=== PATIENT | female | born 1985 | race American Indian/Alaskan Native ===

== ENCOUNTER 2017-02-05 11:02 | Emergency (ER) | payer MEDICARE, MEDICAID ==
--- NOTE | 2017-02-05 21:50 | Emergency Department Report ---
HPI - General Chief Complaint: Urogenital-Female Time Seen by Provider: 02/05/17 21:07 - HPI HPI: This is a 31-year-old -[place] female presents to the emergency department with complaint of lower abdominal pain for the past 3-4 days while . The patient is about 2 months . She lives in [facility] and therefore does not have a local [employer]. She is not on any current vitamins. She has not taken anything for her symptoms prior to presentation. She has some nausea but denies any vomiting. She complains of some yellowish malodorous vaginal discharge. She denies any past medical history. She denies any vaginal bleeding, dysuria or fever. No recent international travel or any sick contacts at home. ED Past Medical Hx - Past Medical History Previous Medical History?: Yes - Social History Smoking Status: Former Smoker - Medications Home Medications: Home Medications Medication Instructions Recorded Confirmed Last Taken Type Vit W-Ca,Fe,FA(<1 mg) 1 each PO QDAY #30 tablet 02/06/17 Unknown Rx [ Vitamins] ED Review of Systems ROS: Stated complaint: PREG 2MONTHS/ABD PAIN Other details as noted in HPI Comment: All other systems reviewed and negative Constitutional: denies: chills, fever Eyes: denies: eye pain, eye discharge, vision change ENT: denies: ear pain, throat pain Respiratory: denies: cough, shortness of breath, wheezing Cardiovascular: denies: chest pain, palpitations Gastrointestinal: abdominal pain. denies: nausea, vomiting Genitourinary: discharge. denies: dysuria Musculoskeletal: denies: back pain, joint swelling, arthralgia Skin: denies: rash, lesions Neurological: denies: headache, weakness, paresthesias Physical Exam - Physical Exam Vital Signs: Vital Signs 02/05/17 11:18 Temperature 98.6 F Pulse Rate 71 Respiratory 18 Rate Blood Pressure 100/60 O2 Sat by Pulse 100 Oximetry Physical Exam: GENERAL: The patient is well-developed well-nourished. ENT: Normocephalic. Atraumatic. Patient has moist mucous membranes. EYES: Extraocular motions are intact. Pupils equal reactive to light bilaterally. No nystagmus. NECK: Supple. Trachea is mid line. CHEST/LUNGS: Clear to auscultation. There is no respiratory distress noted. HEART/CARDIOVASCULAR: Regular. There is mild to moderate tachycardia. There is no gallop rub or murmur. ABDOMEN: Abdomen is soft, nontender to palpation. No guarding or rebound tenderness. Patient has normal bowel sounds. There is no abdominal distention. SKIN: Skin is warm and dry. NEURO: The patient is awake, alert, and oriented. The patient is cooperative. The patient has no sensory or motor deficits. The patient has normal speech and gait. MUSCULOSKELETAL: There is no tenderness or deformity. There is no limitation range of motion. There is no evidence of acute injury. : No gross vaginal or labial lesions seen. There is a mild to moderate amount of odorous yellowish-white discharge in the vaginal vault. ED Course Vital Signs 02/05/17 11:18 Temperature 98.6 F Pulse Rate 71 Respiratory 18 Rate Blood Pressure 100/60 O2 Sat by Pulse 100 Oximetry - Consultations Consultation #1: 02/06/17 01:15 I spoke to the [employer] forest economics professor, Dr. Ramirez, regarding how to appropriately treat trichomoniasis during first trimester . She says that they use 2 g of Flagyl oral 1. ED Medical Decision Making - Lab Data Result diagrams: 02/05/17 21:21 02/05/17 21:21 - Radiology Data Radiology results: report reviewed Obstetric ultrasound shows a live intrauterine at about 10 weeks in 2 days. There is also 2 small fibroids that are seen. - Medical Decision Making 31-year-old female presents to the emergency department with a few days of lower abdominal pain and vaginal discharge or . There is no urinary tract infection. Obstetric ultrasound shows a live intrauterine at about 10 weeks and 5 days as well as 2 small fibroids. Pelvic exam was done and wet prep was sent that was positive for Trichomonas. Patient treated with Flagyl in the emergency department. She will be called if the gonorrhea and/or chlamydia is positive. She lives in [place] and has been encouraged to follow up with her [employer]. She'll return to the ER with any worsening of her symptoms or any acute distress. - Differential Diagnosis , miscarriage, fibroids, trichomoniasis, PID or UTI Critical Care Time: No Critical care attestation.: If time is entered above; I have spent that time in minutes in the direct care of this critically ill patient, excluding procedure time. ED Disposition Clinical Impression: Trichomoniasis Qualifiers: Weeks of gestation: 10 weeks Qualified Code(s): Z3A.10 - 10 weeks gestation of Abdominal pain Qualifiers: Abdominal location: lower abdomen, unspecified Qualified Code(s): R10.30 - Lower abdominal pain, unspecified Fibroids Qualifiers: Uterine leiomyoma location: unspecified location Qualified Code(s): D25.9 - Leiomyoma of uterus, unspecified Disposition: DC- TO HOME OR SELFCARE Is pt being admited?: No Condition: Stable Instructions: (ED), Uterine Fibroids (ED), Trichomoniasis (ED) Additional Instructions: Please follow-up with your primary care doctor and [employer] when you return to [place]. I have started you on vitamins. Return to the emergency Department with any worsening of your symptoms or any acute distress. Prescriptions: Vit W-Ca,Fe,FA(<1 mg) [ Vitamins] 1 each PO QDAY #30 tablet Referrals: PRIMARY CAREMD [Primary Care Provider] - [facility] Time of Disposition: 01:20
[2017-02-05 21:55] LABS: Basophils % (Auto) 0.4 % (0.0-1.8); Eosinophils % (Auto) 1.3 % (0.0-4.3); Hematocrit 37.6 % (30.3-42.9); Mean Corpuscular HGB Conc 35 % (30-34); Mean Corpuscular Hemoglobin 32 pg (28-32); Mean Corpuscular Volume 91 fl (79-97); Platelet Count 164 K/mm3 (140-440); Red Blood Count 4.12 M/mm3 (3.65-5.03); Red Cell Distribution Width 12.8 % (13.2-15.2); White Blood Count 6.2 K/mm3 (4.5-11.0)
[2017-02-05 22:00] LABS: Blood Urea Nitrogen 9 mg/dL (7-17); Carbon Dioxide 24 mmol/L (22-30); Glucose 121 mg/dL (65-100)
[2017-02-05 22:01] LABS: Albumin 3.8 g/dL (3.9-5); Albumin/Globulin Ratio 1.4 %; Alkaline Phosphatase 40 units/L (35-129); Anion Gap 17 mmol/L; Bilirubin,Total < 0.20 mg/dL (0.1-1.2); Chloride 98.6 mmol/L (98-107); Potassium 3.6 mmol/L (3.6-5.0); Sodium 136 mmol/L (137-145); Total Protein 6.5 g/dL (6.3-8.2)
[2017-02-05 22:09] LABS: Alanine Aminotransferase < 5 units/L (7-56)
[2017-02-05 22:37] LABS: Bilirubin,Urine NEG (Negative); Blood,Urine NEG (Negative); Ketones,Urine TR mg/dL (Negative); Leukocyte Esterase,Urine LG (Negative); Mucus,Urine 3+ /HPF; Nitrite,Urine NEG (Negative)
--- NOTE | 2017-02-06 00:04 | Ultrasound Report ---
FINAL REPORT PROCEDURE: US OB TRANSVAGINAL TECHNIQUE: Real-time transvaginal sonography of the uterus, placenta, amniotic fluid, adnexa, and fetus was performed with image documentation. Measurements were obtained to determine age/size. M-mode Doppler was used to document heartbeat. CPT 37760 HISTORY: , abd pain COMPARISON: No prior studies are available for comparison. FINDINGS: A hypoechoic mass lesion measuring 3.3 x 2.4 x 3.7 centimeters is noted in the posterior mid uterus. A isoechoic mass lesion is noted in the anterior uterus measuring 2.6 x 2.5 x 3.0 centimeters. CRL: 38.4mm, which corresponds to a gestational age of: 10weeks, 5 days. Yolk Sac: Normal. Embryonic Cardiac Activity: 167 beats per minute Gestational Sac: Normal. Right Ovary: Normal. Left Ovary: Normal. Estimated delivery date: 08/30/2017 Comment: Complete anatomic survey at 18-20 weeks suggested. IMPRESSION: 1. Single living intrauterine gestation at approximately 10 weeks and 5 days 2. EDC by US 08/30/2017. 3. Two focal lesions in the uterus most likely represent fibroids larger measuring 3.3 x 2.4 x 3.7 centimeters
--- NOTE | 2017-02-06 00:05 | Ultrasound Report ---
FINAL REPORT PROCEDURE: US OB \T\lt; = 14 WEEKS FETUS TECHNIQUE: Real-time transabdominal sonography of the uterus, placenta, amniotic fluid, adnexa, and fetus was performed with image documentation. Measurements were obtained to determine age/size. M-mode Doppler was used to document heartbeat. CPT 28475 HISTORY: , abd pain COMPARISON: No prior studies are available for comparison. FINDINGS: A hypoechoic mass lesion measuring 3.3 x 2.4 x 3.7 centimeters is noted in the posterior mid uterus. A isoechoic mass lesion is noted in the anterior uterus measuring 2.6 x 2.5 x 3.0 centimeters. CRL: 38.4mm, which corresponds to a gestational age of: 10weeks, 5 days. Yolk Sac: Normal. Embryonic Cardiac Activity: 167 beats per minute Gestational Sac: Normal. Right Ovary: Normal. Left Ovary: Normal. Estimated delivery date: 08/30/2017 Comment: Complete anatomic survey at 18-20 weeks suggested. IMPRESSION: Single live intrauterine gestation at approximately 10 weeks and 5 days. EDC by US 08/30/2017 Two focal lesions in the uterus most likely represent fibroids.
[2017-02-06] MEDS ORDERED: TYLENOL PO ONE (00:31)
[2017-02-06] MEDS ORDERED: FLAGYL PO ONE (00:50)
[2017-02-06 01:32] VITALS: BP 107/57
== END 2017-02-06 01:33 | disposition home or self-care (01) ==
LOC: ED 11:02
DX: O98.811 Other maternal infectious and parasitic diseases complicating pregnancy, first trimester (principal); A59.9 Trichomoniasis, unspecified; O34.11 Maternal care for benign tumor of corpus uteri, first trimester; Z87.891 Personal history of nicotine dependence; Z3A.10 10 weeks gestation of pregnancy
CPT/HCPCS: 36415; 76801; 76817; 80053; 81001; 84702; 85025; 87210; 87591; 99284

== ENCOUNTER 2017-02-28 10:04 | Emergency (ER) | payer MEDICARE ==
[2017-02-28 11:44] LABS: Basophils % (Auto) 0.5 % (0.0-1.8); Eosinophils % (Auto) 1.1 % (0.0-4.3); Hematocrit 38.8 % (30.3-42.9); Hemoglobin 13.3 gm/dl (10.1-14.3); Mean Corpuscular HGB Conc 34 % (30-34); Mean Corpuscular Hemoglobin 31 pg (28-32); Mean Corpuscular Volume 91 fl (79-97); Platelet Count 184 K/mm3 (140-440); Red Blood Count 4.25 M/mm3 (3.65-5.03); Red Cell Distribution Width 12.5 % (13.2-15.2); White Blood Count 6.8 K/mm3 (4.5-11.0)
[2017-02-28 12:30] LABS: Creatine Kinase MB 1.2 ng/mL (0.0-4.0)
[2017-02-28 12:33] LABS: Alanine Aminotransferase 8 units/L (7-56); Albumin 3.8 g/dL (3.9-5); Albumin/Globulin Ratio 1.1 %; Alkaline Phosphatase 47 units/L (35-129); Anion Gap 19 mmol/L; Blood Urea Nitrogen 8 mg/dL (7-17); Calcium 9.9 mg/dL (8.4-10.2); Carbon Dioxide 23 mmol/L (22-30); Chloride 98.8 mmol/L (98-107); Glucose 102 mg/dL (65-100); Lipase 13 units/L (13-60); Potassium 4.1 mmol/L (3.6-5.0); Sodium 137 mmol/L (137-145); Total Protein 7.2 g/dL (6.3-8.2)
[2017-02-28 12:34] LABS: Creatine Kinase 104 units/L (30-135)
--- NOTE | 2017-02-28 22:20 | Emergency Department Report ---
ED General Adult HPI - General Chief complaint: Arrhythmia/Palpitations Stated complaint: 13WKS COLD AND COUGH Time Seen by Provider: 02/28/17 22:00 Source: patient Mode of arrival: Ambulatory Limitations: No Limitations - History of Present Illness Initial comments: 31 years old female 13 weeks , with dizziness, cough and congestion for the last 2-3 days patient denied any abdominal pain or vaginal bleed no other complaint at this moment. -: Gradual Consistency: intermittent - Related Data Previous Rx's Medication Instructions Recorded Last Taken Type Vit W-Ca,Fe,FA(<1 mg) 1 each PO QDAY #30 tablet 02/06/17 Unknown Rx [ Vitamins] guaiFENesin [Robitussin] 5 ml PO TID PRN #100 ml 02/28/17 Unknown Rx Allergies Allergy/AdvReac Type Severity Reaction Status Date / Time acetaminophen [From Lortab] AdvReac Hives Verified 02/05/17 11:17 hydrocodone bitartrate AdvReac Hives Verified 02/05/17 11:17 [From Lortab] ED Review of Systems ROS: Stated complaint: 13WKS COLD AND COUGH Other details as noted in HPI Comment: All other systems reviewed and negative Constitutional: denies: chills, fever ENT: denies: throat pain Respiratory: cough. denies: shortness of breath, SOB with exertion Cardiovascular: palpitations. denies: chest pain, dyspnea on exertion, orthopnea, edema, syncope, paroxysmal nocturnal dyspnea Gastrointestinal: denies: abdominal pain, nausea, vomiting, diarrhea, constipation Genitourinary: denies: dysuria, frequency Neurological: denies: headache, weakness, numbness, paresthesias ED Past Medical Hx - Past Medical History Previous Medical History?: Yes Hx Psychiatric Treatment: Yes (cocaine use) Additional medical history: ovarian cysts - Surgical History Past Surgical History?: No - Social History Smoking Status: Former Smoker Substance Use Type: Cocaine - Medications Home Medications: Home Medications Medication Instructions Recorded Confirmed Last Taken Type Vit W-Ca,Fe,FA(<1 mg) 1 each PO QDAY #30 tablet 02/06/17 Unknown Rx [ Vitamins] guaiFENesin [Robitussin] 5 ml PO TID PRN #100 ml 02/28/17 Unknown Rx ED Physical Exam - General Limitations: No Limitations General appearance: alert, in no apparent distress - Head Head exam: Present: atraumatic - Eye Eye exam: Present: normal appearance - ENT ENT exam: Present: normal exam - Neck Neck exam: Present: normal inspection - Respiratory Respiratory exam: Present: normal lung sounds bilaterally. Absent: respiratory distress, wheezes, rales, rhonchi, accessory muscle use, decreased breath sounds , prolonged expiratory - Cardiovascular Cardiovascular Exam: Present: regular rate, normal rhythm, normal heart sounds. Absent: bradycardia, tachycardia, irregular rhythm, systolic murmur, diastolic murmur, rubs, gallop - GI/Abdominal GI/Abdominal exam: Present: soft, other (gravid uterus). Absent: tenderness, guarding, rebound, rigid, normal bowel sounds, mass - Extremities Exam Extremities exam: Present: normal inspection - Back Exam Back exam: Present: normal inspection. Absent: CVA tenderness (R), CVA tenderness (L) - Neurological Exam Neurological exam: Present: alert, oriented X3, CN II-XII intact, normal gait, reflexes normal. Absent: abnormal gait, motor sensory deficit - Skin Skin exam: Present: warm, normal color ED Course Vital Signs 02/28/17 02/28/17 11:13 23:09 Temperature 98.9 F 99 F Pulse Rate 75 71 Respiratory 18 18 Rate Blood Pressure 112/75 Blood Pressure 121/70 [Left] O2 Sat by Pulse 100 Oximetry - Reevaluation(s) Reevaluation #1: 02/28/17 23:26 Patient stated that her dizziness is completely resolved and she is back to normal she wants something to help with the cough. I will prescribe Robitussin I advised patient to follow up with her OB doctor in the next 2-3 days. ED Medical Decision Making - Lab Data Result diagrams: 02/28/17 11:27 02/28/17 11:27 Critical care attestation.: If time is entered above; I have spent that time in minutes in the direct care of this critically ill patient, excluding procedure time. ED Disposition Clinical Impression: Dizziness, URI (upper respiratory infection) Disposition: DC-01 TO HOME OR SELFCARE Is pt being admited?: No Condition: Stable Instructions: Dizziness (ED) Referrals: PRIMARY CARE,MD [Primary Care Provider] - 3-5 Days Forms: Work/School Release Form(ED)
[2017-02-28 22:55] LABS: Bilirubin,Urine NEG (Negative); Blood,Urine NEG (Negative); Ketones,Urine NEG (Negative); Leukocyte Esterase,Urine NEG (Negative); Mucus,Urine 3+ /HPF; Nitrite,Urine NEG (Negative)
[2017-03-01 00:42] VITALS: BP 131/79
== END 2017-03-01 01:15 | disposition home or self-care (01) ==
LOC: ED 10:04
DX: O99.511 Diseases of the respiratory system complicating pregnancy, first trimester (principal); J06.9 Acute upper respiratory infection, unspecified; R42 Dizziness and giddiness; F14.90 Cocaine use, unspecified, uncomplicated; Z87.891 Personal history of nicotine dependence; Z88.8 Allergy status to other drugs, medicaments and biological substances; Z3A.13 13 weeks gestation of pregnancy
CPT/HCPCS: 36415; 80053; 81001; 82550; 82553; 83690; 84484; 84703; 85025; 93005; 93010